=== PATIENT | female | born 1960 | race Caucasian/White ===

== ENCOUNTER 2024-01-09 08:27 | Emergency (ER) | payer OTHER ==
[~2024-01-09] VITALS: Ht 157.5 cm; Wt 54.4 kg
[2024-01-09 08:54] VITALS: BP 120/69; TEMP 97.9
[2024-01-09] MEDS ORDERED: BENZOIN COMPOUND TINCT 60 ML BOTTLE ONE (08:55)
[2024-01-09] MEDS ORDERED: BACI/NEOM/POLY B OINT PKT 1 UDPKT PACKET ONE (09:10)
[2024-01-09] MEDS: BACI/NEOM/POLY B OINT PKT 1 UDPKT PACKET TP ONE (09:11)
[2024-01-09] MEDS ORDERED: TDAP [DIPH/PERTUSSIS/TET] 0.5 ML VIAL IM ONE (09:14)
[2024-01-09] MEDS ORDERED: IBUP-1955 PO (09:15)
[2024-01-09] MEDS ORDERED: CLIN300C12 PO (09:15)
[2024-01-09] MEDS ORDERED: METR500T PO (09:20)
[2024-01-09] MEDS: TDAP [DIPH/PERTUSSIS/TET] 0.5 ML VIAL IM ONE (09:20)
[2024-01-09 09:30] VITALS: O2SAT 96
== END 2024-01-09 10:18 | disposition home or self-care (01) ==
LOC: ER 08:40
DX: S61.011A Laceration without foreign body of right thumb without damage to nail, initial encounter (principal); E11.9 Type 2 diabetes mellitus without complications; Z88.1 Allergy status to other antibiotic agents; W54.0XXA Bitten by dog, initial encounter; Y93.89 Activity, other specified; Y92.89 Other specified places as the place of occurrence of the external cause; Y99.8 Other external cause status
CPT/HCPCS: 99283; 12001; 90471; 90715; A6403